=== PATIENT | female | born 1975 | race African-American/Black ===

== ENCOUNTER → 2018-03-11 | Outpatient (CLI) | payer OTHER | END | disposition home or self-care (01) | LOC: KCIC MAMMO 10:59 | DX: Z12.31 Encounter for screening mammogram for malignant neoplasm of breast (principal) | CPT/HCPCS: 77067 ==

== ENCOUNTER → 2018-03-20 | Outpatient (CLI) | payer OTHER | END | disposition home or self-care (01) | LOC: KCIC MAMMO 09:22 | DX: R92.8 Other abnormal and inconclusive findings on diagnostic imaging of breast (principal) | CPT/HCPCS: 76641; 77065 ==

== ENCOUNTER → 2018-07-01 | Outpatient (CLI) | payer OTHER ==
[2015-12-12 06:34] VITALS: BP 124/64
[~2018-07-01] MED LIST: ATEN50TA PO; FERR325T72 PO; METH-364 PO
--- NOTE | 2018-07-01 13:16 | KCIC ---
Left breast diagnostic digital mammograms: Reason for examination: Follow-up nodules. Comparison is made to previous study dated 03/11/2018. Interpretation was made with the benefit of CAD. The skin and nipple show no abnormalities. No abnormal axillary lymph nodes are seen. The breast parenchyma shows scattered fibroglandular density. (Breast density: Category B.) There continues to be a small nodular density at the 3:00 B position of the left breast which shows no significant change. There are no new dominant masses, suspicious calcifications or architectural distortions. Impression: No change in the small nodule at the 3:00 B position of the left breast. Ultrasound to follow. BI-RADS Category 0: Incomplete. Needs additional imaging evaluation. Left breast ultrasound: Comparison is made to previous study dated 03/20/2018. Ultrasound examination was performed in the area of mammographic and previous sonographic concern and at the left axilla. At the 2:30 position 7 cm from the nipple, there continues to be a small 6.2 x 4 mm fibrocystic lesion which appears to be stable and may represent fibroadenoma. At the 3:00 position 8 cm from the nipple, there continues to be a small 4.3 x 4.1 mm hypoechoic nodule with some echogenicity centrally. This appears to measure slightly small than on previous examination. Appearance is consistent with a small lymph node. No other cystic or solid lesions are seen. No abnormal appearing lymph nodes are seen in the left axilla. IMPRESSION: No change in the small nodule at the 2:30 position which may represent a small fibroadenoma. Slight decrease in size of the nodule at the 3:00 position which may represent a small intramammary lymph node. No suspicious-appearing lesion seen. Recommend follow-up ultrasound of the time of bilateral mammograms in 6 months. BI-RADS Category 3: Probably Benign. "Our facility is accredited by the [employer] Mammography Program." This patient's information has been entered into a reminder system for the patient to be notified with the results of her examination and a target date for the next mammogram. Electronically signed by: Emmy Goodwin MD (07/01/2018 1:13 PM) [id number]
== END | disposition home or self-care (01) ==
LOC: KCIC US 09:48
PROVIDERS: ATTEND Family Medicine
DX: N63.23 Unspecified lump in the left breast, lower outer quadrant (principal)
CPT/HCPCS: 76641; 77065